=== PATIENT | male | born 1975 | race Hispanic/Latino ===

== ENCOUNTER 2017-08-24 06:25 | Observation (INO) | payer OTHER ==
[2017-08-24] MEDS ORDERED: Oxycodone/Acetaminophen 5/325 mg Tab PO STA (07:26)
[2017-08-24] MEDS ORDERED: Oxycodone/Acetaminophen 5/325 mg Tab ONE (07:34)
--- NOTE | 2017-08-24 07:38 | ED PDOC ---
HPI: Back Time Seen by Provider: 08/24/17 07:09 Chief Complaint (Nursing): Back Pain Chief Complaint (Provider): Back Pain History Per: Patient History/Exam Limitations: no limitations Onset/Duration Of Symptoms: Hrs (1:00am today) Current Symptoms Are (Timing): Still Present Quality Of Discomfort: "Pain" Previous Symptoms: Back Pain Exacerbating Factor(s): Movement Additional Complaint(s): Dmitriy Leiva is a 41 year old male, with no significant past medical history, who was brought to the emergency department via EMS for a sudden left lower back pain onset since 1:00am today. Patient states the pain radiates down the left leg and feels numbness on his toes, the pain is worst with movement. He reports a similar episode recently but not as severe. Patient reports x2 days after coming back from [place] he had a dull pain that lasted a week but he took Meloxicam and Flexeril with relief. Patient took Meloxicam 15mg and Flexeril today at 1am with no relief. He denies any fever, chills, dysuria, retention or blood in urine. No further medical complaints. PMD: None provided. Past Medical History Reviewed: Historical Data, Nursing Documentation, Vital Signs Vital Signs: Last Vital Signs Temp 97.5 F L 08/24/17 06:40 Pulse 98 H 08/24/17 06:40 Resp 20 08/24/17 06:40 BP 140/102 H 08/24/17 06:40 Pulse Ox 97 08/24/17 06:40 - Medical History PMH: No Chronic Diseases - Surgical History Surgical History: No Surg Hx - Family History Family History: States: Unknown Family Hx - Social History Current smoker - smoking cessation education provided: No Alcohol: Social Drugs: Denies - Home Medications Home Medications: Ambulatory Orders Medication Instructions Recorded Methylprednisolone [Medrol Dose 4 mg PO ASDIR #21 mg 08/24/17 Pack (21 tabs)] oxyCODONE/Acetaminophen [Percocet 1 tab PO Q6 PRN #15 tab 08/24/17 5/325 mg Tab] - Allergies Allergies/Adverse Reactions: Allergies Allergy/AdvReac Type Severity Reaction Status Date / Time No Known Allergies Allergy Verified 08/24/17 06:47 Review of Systems ROS Statement: Except As Marked, All Systems Reviewed And Found Negative Constitutional: Negative for: Fever, Chills Genitourinary Male: Negative for: Dysuria, Frequency, Incontinence, Hematuria Musculoskeletal: Positive for: Back Pain (left lower that radiates down the left leg), Leg Pain (left leg) Physical Exam - Reviewed Nursing Documentation Reviewed: Yes Vital Signs Reviewed: Yes - Physical Exam Appears: Positive for: Non-toxic, Uncomfortable Head Exam: Positive for: ATRAUMATIC, NORMAL INSPECTION, NORMOCEPHALIC Skin: Positive for: Normal Color, Warm, Dry Eye Exam: Positive for: Normal appearance, EOMI, PERRL Neck: Positive for: Painless ROM, Supple Cardiovascular/Chest: Positive for: Regular Rate, Rhythm. Negative for: Murmur Respiratory: Positive for: Normal Breath Sounds. Negative for: Respiratory Distress Gastrointestinal/Abdominal: Positive for: Normal Exam, Soft. Negative for: Tenderness Back: Positive for: Vertebral Tenderness (left lower paraspinal ) Extremity: Positive for: Normal ROM (lower extremities). Negative for: Deformity, Swelling Neurologic/Psych: Positive for: Alert, Oriented, Other (Straight leg raise test positive). Negative for: Motor/Sensory Deficits, Aphasia, Facial Droop - Laboratory Results Result Diagrams: 08/24/17 07:45 08/24/17 07:45 - ECG O2 Sat by Pulse Oximetry: 97 (RA) Pulse Ox Interpretation: Normal Medical Decision Making Medical Decision Making: Initial Impression: Back pain and leg pain. Differential includes sciatica, lumbar radiculopathy Initial Plan: --Lumbar Spine w/o contrast [CT] --BMP --CBC w/ differential --Erythrocyte sedimentation rate --Flexeril 10 mg PO --Percocet 5/325mg tab --Valium 5 mg PO --Reevaluation 09:[address] FINDINGS: VERTEBRAE: Unremarkable. No fracture. Normal alignment. DISCS/SPINAL CANAL/NEURAL FORAMINA: L1-2: Unremarkable. L2-3: Disc space height maintained. No disc herniation or significant disc bulge. Central canal and exit foramina adequate. L3-4: Disc space height maintained. No disc herniation or significant disc bulge. Central canal and exit foramina adequate. . L4-5: Mild posterior disc space narrowing. Small central and bilateral disc herniation slightly larger on the left than right with bilateral lateral recess stenosis. Facet joints are slightly overgrown. The at there is mild compressive effects on the ventral surface of the thecal sac more so on the left side. Exit foramina appear adequate. L5-S1: There is disc space narrowing more so along the posterior disc margin with a small Schmorl's node along the superior corner of the S1 segment associated with small osteophytic ridge. . There is also a central and bilateral disc herniation extends inferiorly over short distance within the canal result in compression of the ventral surface of the thecal sac centrally and to the left as well as compression of the left-sided S1 nerve root. There is bilateral lateral recess stenosis left greater than right. Disc also extends slightly into the proximal inferior margins of the left exit foramen. Exit foramina appear marginal to adequate on the left and adequate on the right. PARASPINAL SOFT TISSUES: Unremarkable. OTHER FINDINGS: None. IMPRESSION: Degenerative spondylosis most notably affecting the L5-S1 with posterior disc space narrowing and central and bilateral disc herniation left larger than right that results in bilateral lateral recess stenosis left greater than right as well as compression of the thecal sac and left-sided S1 nerve root. . There is a smaller this disc herniation L4-L5 level as detailed above. 13:40 -Patient reports significant improvement. Pain is controlled. 13:45 -Looked patient in the [place] prescription monitoring program, there is only a record of one Rx of Ativan in the last year. 13:50 -Patient states pain came back, unable to ambulate and is c/o of severe intractable pain even after improvement. He will be admitted for intractable pain to hospital. 14:15 -Spoke with Dr. Romero, who will admit for observation of intractable back pain. Scribe Attestation: Documented by Caleb Hopson, acting as a scribe for Sergio Acosta MD Provider Scribe Attestation: All medical record entries made by the Scribe were at my direction and personally dictated by me. I have reviewed the chart and agree that the record accurately reflects my personal performance of the history, physical exam, medical decision making, and the department course for this patient. I have also personally directed, reviewed, and agree with the discharge instructions and disposition. Disposition - Clinical Impression Clinical Impression: Back pain, Lumbar radiculopathy, Disc herniation - Disposition Referrals: Winston Moulton MD [Staff Provider] - Disposition: Routine/Home Disposition Time: 13:55 Condition: IMPROVED Additional Instructions: Take your medications as instructed. Follow up with your PCP in 2-3 days. Prescriptions: Methylprednisolone [Medrol Dose Pack (21 tabs)] 4 mg PO ASDIR #21 mg oxyCODONE/Acetaminophen [Percocet 5/325 mg Tab] 1 tab PO Q6 PRN #15 tab PRN Reason: Pain, Severe (8-10) Instructions: Herniated Disc (DC), Radiculopathy (DC)
[2017-08-24 08:01] LABS: BASO # 0.1 K/uL (0.0-0.2); BASO % 1.1 % (0.0-2.0); EOS # 0.2 K/uL (0.0-0.7); HEMOGLOBIN 15.6 g/dL (12.0-18.0); MEAN CELL VOLUME 90.6 fl (80.0-94.0); MEAN CORPUSCULAR HEMOGLOBIN 31.4 pg (27.0-31.0); MEAN CORPUSCULAR HGB CONC 34.6 g/dL (33.0-37.0); MEAN PLATELET VOLUME 9.1 fl (7.2-11.7); MONO # 0.4 K/uL (0.0-0.8); MONO % 5.7 % (0.0-10.0); NEUT # 4.9 K/uL (1.8-7.0); NEUT % 64.2 % (50.0-75.0); NRBC % 0.1 % (0.0-0.0); RBC 4.98 Mil/uL (4.40-5.90); RED CELL DISTRIBUTION WIDTH 12.8 % (11.5-14.5); WHITE BLOOD COUNT 7.7 K/uL (4.8-10.8)
[2017-08-24 08:19] LABS: CALCIUM 9.6 mg/dL (8.4-10.2); GFR AFRICAN-AMERICAN > 60; GFR NON-AFRICAN AMERICAN > 60
[2017-08-24 08:24] LABS: BLOOD UREA NITROGEN 24 mg/dl (9-20)
--- NOTE | 2017-08-24 09:17 | CT ---
PROCEDURE: CT Lumbar Spine without contrast HISTORY: Soft back pain no injury COMPARISON: None. TECHNIQUE: Axial computed tomography images were obtained of the lumbar spine without the use of intravenous contrast. Coronal and sagittal reformatted images were created and reviewed. Radiation dose: Total exam DLP = 606.78 mGy-cm. This CT exam was performed using one or more of the following dose reduction techniques: Automated exposure control, adjustment of the mA and/or kV according to patient size, and/or use of iterative reconstruction technique. FINDINGS: VERTEBRAE: Unremarkable. No fracture. Normal alignment. DISCS/SPINAL CANAL/NEURAL FORAMINA: L1-2: Unremarkable. L2-3: Disc space height maintained. No disc herniation or significant disc bulge. Central canal and exit foramina adequate. L3-4: Disc space height maintained. No disc herniation or significant disc bulge. Central canal and exit foramina adequate. . L4-5: Mild posterior disc space narrowing. Small central and bilateral disc herniation slightly larger on the left than right with bilateral lateral recess stenosis. Facet joints are slightly overgrown. The at there is mild compressive effects on the ventral surface of the thecal sac more so on the left side. Exit foramina appear adequate. L5-S1: There is disc space narrowing more so along the posterior disc margin with a small Schmorl's node along the superior corner of the S1 segment associated with small osteophytic ridge. . There is also a central and bilateral disc herniation extends inferiorly over short distance within the canal result in compression of the ventral surface of the thecal sac centrally and to the left as well as compression of the left-sided S1 nerve root. There is bilateral lateral recess stenosis left greater than right. Disc also extends slightly into the proximal inferior margins of the left exit foramen. Exit foramina appear marginal to adequate on the left and adequate on the right. PARASPINAL SOFT TISSUES: Unremarkable. OTHER FINDINGS: None. IMPRESSION: Degenerative spondylosis most notably affecting the L5-S1 with posterior disc space narrowing and central and bilateral disc herniation left larger than right that results in bilateral lateral recess stenosis left greater than right as well as compression of the thecal sac and left-sided S1 nerve root. . There is a smaller this disc herniation L4-L5 level as detailed above.
[2017-08-24] MEDS ORDERED: Morphine 4 MG/ML VIAL IVP ONE ×2 (11:20→15:14)
[2017-08-24] MEDS ORDERED: Morphine 4 MG/ML VIAL ONE (15:16)
[2017-08-24] MEDS ORDERED: Dexamethasone 10 MG in Sodium Chloride 0.9% 50 ML IVP ONE (15:23)
--- NOTE | 2017-08-24 17:56 | MRI ---
PROCEDURE: MR LUMBAR SPINE WITHOUT CONTRAST HISTORY: left back pain left leg pain COMPARISON: None available. TECHNIQUE: Multiecho multiplanar sequences were performed through the lumbar spine without the use of intravenous contrast. FINDINGS: There straightening of lumbar curvature without fracture or spondylolisthesis identified grossly. Vertebral body heights are within normal limits throughout with normal marrow signal appreciated as well. A benign hemangioma is identified at the L2 vertebral body posteriorly. Moderate disc desiccation is identified L4-5 and L5-S1 with the remaining lumbar intervertebral discs adequately hydrated. Conus medullaris appears normal terminating at the superior endplate of L2 with prevertebral paraspinal soft tissues appear diffusely unremarkable. Endplate degenerative changes are developing around the L5-S1 intervertebral disc space as well as the upper plan endplate of L4. T12-L1: No disc herniation, spinal canal stenosis or neural foraminal narrowing. L1-2: No disc herniation, spinal canal stenosis or neural foraminal narrowing. L2-3: No disc herniation, spinal canal stenosis or neural foraminal narrowing. L3-4: No disc herniation, spinal canal stenosis or neural foraminal narrowing. Symmetric facet joint degenerative change encroaches the bilateral neural foramina and lateral recesses without significant generalized stenosis. L4-5: There is a small center disc herniation with inferior extrusion combined with facet arthropathy to cause mild central canal stenosis overall. Lateral recesses are particularly stenosis slightly greater the left and right sides. No significant neural foraminal stenosis bilaterally. L5-S1: There is a large left lateral disc herniation extending from the midline or even right paracentral posterior disc margins laterally into the left neural foramen causing moderate left neural foraminal stenosis, obliterating the left lateral recess and causing a moderate central stenosis greater the left than right hemicanal. Moderate facet joint degenerative changes are also appreciated the right neural foramen is widely patent. OTHER FINDINGS: None. IMPRESSION: 1. A large L5-S1 disc herniation there is predominant left-sided but also the affects the right parasagittal level of the L5-S1 disc causing moderate central canal stenosis greater the left and right sides and moderate left neural foraminal stenosis. 2. A small central disc herniation is identified L4-5 causing mild central canal stenosis overall due to facet arthropathy in concert with this finding. Lateral recesses are particularly stenosis greater at the left and right sides.
[2017-08-24] MEDS: Morphine 4 MG/ML VIAL IVP PRN (23:56)
[2017-08-25 00:56] LABS: URINE BILIRUBIN NEGATIVE (NEGATIVE); URINE BLOOD NEGATIVE (NEGATIVE); URINE CLARITY CLEAR (Clear); URINE COLOR YELLOW (YELLOW); URINE GLUCOSE (UA) NEG (Normal); URINE LEUKOCYTE ESTERASE NEG Leu/uL (Negative); URINE PROTEIN NEGATIVE (NEGATIVE); URINE UROBILINOGEN 0.2-1.0 mg/dL (0.2-1.0)
[2017-08-25 00:57] VITALS: RESP 19
[2017-08-25 08:05] VITALS: BP 122/80; PULSE 85; TEMP 98; O2SAT 98
[2017-08-25 08:11] LABS: HEMOGLOBIN 15.8 g/dL (12.0-18.0); MEAN CELL VOLUME 90.9 fl (80.0-94.0); MEAN CORPUSCULAR HEMOGLOBIN 30.6 pg (27.0-31.0); MEAN CORPUSCULAR HGB CONC 33.7 g/dL (33.0-37.0); RBC 5.16 Mil/uL (4.40-5.90); WHITE BLOOD COUNT 11.1 K/uL (4.8-10.8)
[2017-08-25] MEDS ORDERED: Enoxaparin 40 mg Syringe SC SCH (09:00)
[2017-08-25 09:08] LABS: ALB/GLOB RATIO 1.1 (1.0-2.1); ALBUMIN 4.3 g/dL (3.5-5.0); ALT/SGPT 54 U/L (21-72); AST/SGOT 35 U/L (17-59); BLOOD UREA NITROGEN 19 mg/dl (9-20); CALCIUM 9.8 mg/dL (8.4-10.2); GFR AFRICAN-AMERICAN > 60; GFR NON-AFRICAN AMERICAN > 60
[2017-08-25] MEDS ORDERED: Dexamethasone 6 MG in Sodium Chloride 0.9% 50 ML IVPB SCH (10:15)
[2017-08-25] MEDS: Morphine 4 MG/ML VIAL IVP PRN (11:34)
--- NOTE | 2017-08-26 00:32 | CP.PCM.HP ---
Past Patient History - Past Medical History & Family History Past Medical History?: Yes - Past Social History Smoking Status: Never Smoked - CARDIAC Hx Cardiac Disorders: No - PULMONARY Hx Respiratory Disorders: No - NEUROLOGICAL Hx Neurological Disorder: No - HEENT Hx HEENT Problems: No - RENAL Hx Chronic Kidney Disease: No - ENDOCRINE/METABOLIC Hx Endocrine Disorders: No - HEMATOLOGICAL/ONCOLOGICAL Hx Blood Disorders: No - INTEGUMENTARY Hx Dermatological Problems: No - MUSCULOSKELETAL/RHEUMATOLOGICAL Hx Falls: No - GENITOURINARY/GYNECOLOGICAL Hx Genitourinary Disorders: No - PSYCHIATRIC Hx Substance Use: No - SURGICAL HISTORY Hx Surgeries: No - ANESTHESIA Hx Anesthesia: No Hx Anesthesia Reactions: No Hx Malignant Hyperthermia: No Has any member of the family had a problem w/ anesthesia?: No Meds Home Medications: Home Medication List Medication Instructions Recorded Confirmed Type Cyclobenzaprine [Flexeril] 5 mg PO TID #15 tab 08/25/17 Rx Dexamethasone [Decadron] 4 mg PO Q6 #20 tab 08/25/17 Rx oxyCODONE/Acetaminophen [Percocet 1 ea PO Q6 #20 tab 08/25/17 Rx 5/325 mg Tab] Allergies/Adverse Reactions: Allergies Allergy/AdvReac Type Severity Reaction Status Date / Time No Known Allergies Allergy Verified 08/24/17 06:47 Results - Vital Signs Recent Vital Signs: Last Vital Signs Temp 98.0 F 08/25/17 08:05 Pulse 85 08/25/17 08:05 Resp 19 08/25/17 08:05 BP 122/80 08/25/17 08:05 Pulse Ox 98 08/25/17 08:05 - Labs Result Diagrams: 08/25/17 07:50 08/25/17 07:50 Labs: Laboratory Results - last 24 hr 08/25/17 08/25/17 08/25/17 00:30 07:50 07:50 WBC 11.1 H RBC 5.16 Hgb 15.8 Hct 46.9 MCV 90.9 MCH 30.6 MCHC 33.7 RDW 13.0 Plt Count 261 ESR 11 Sodium 140 Potassium 4.5 Chloride 104 Carbon Dioxide 22 Anion Gap 19 BUN 19 Creatinine 0.9 Est GFR ( Amer) > 60 Est GFR (Non-Af Amer) > 60 Random Glucose 133 H Calcium 9.8 Total Bilirubin 0.5 AST 35 ALT 54 Alkaline Phosphatase 83 C-Reactive Protein < 5.00 Total Protein 8.2 Albumin 4.3 Globulin 3.9 Albumin/Globulin Ratio 1.1 Vitamin B12 480 Urine Color Yellow Urine Clarity Clear Urine pH 6.0 Ur Specific [place] 1.027 Urine Protein Negative Urine Glucose (UA) Neg Urine Ketones Negative Urine Blood Negative Urine Nitrate Negative Urine Bilirubin Negative Urine Urobilinogen 0.2-1.0 Ur Leukocyte Esterase Neg Urine RBC (Auto) 1 Urine Microscopic WBC < 1
--- NOTE | 2017-08-26 00:33 | CP.PCM.DIS ---
Provider - Provider Date of Admission: 08/24/17 14:10 Attending physician: Ghassan Romero MD Time Spent in preparation of Discharge (in minutes): 15 Hospital Course - Lab Results Lab Results: Most Recent Lab Values WBC 11.1 K/uL (4.8-10.8) H 08/25/17 07:50 RBC 5.16 Mil/uL (4.40-5.90) 08/25/17 07:50 Hgb 15.8 g/dL (12.0-18.0) 08/25/17 07:50 Hct 46.9 % (35.0-51.0) 08/25/17 07:50 MCV 90.9 fl (80.0-94.0) 08/25/17 07:50 MCH 30.6 pg (27.0-31.0) 08/25/17 07:50 MCHC 33.7 g/dL (33.0-37.0) 08/25/17 07:50 RDW 13.0 % (11.5-14.5) 08/25/17 07:50 Plt Count 261 K/uL (130-400) 08/25/17 07:50 MPV 9.1 fl (7.2-11.7) 08/24/17 07:45 Neut % (Auto) 64.2 % (50.0-75.0) 08/24/17 07:45 Lymph % (Auto) 26.0 % (20.0-40.0) 08/24/17 07:45 [place] % (Auto) 5.7 % (0.0-10.0) 08/24/17 07:45 Eos % (Auto) 3.0 % (0.0-4.0) 08/24/17 07:45 Baso % (Auto) 1.1 % (0.0-2.0) 08/24/17 07:45 Neut # (Auto) 4.9 K/uL (1.8-7.0) 08/24/17 07:45 Lymph # (Auto) 2.0 K/uL (1.0-4.3) 08/24/17 07:45 [place] # (Auto) 0.4 K/uL (0.0-0.8) 08/24/17 07:45 Eos # (Auto) 0.2 K/uL (0.0-0.7) 08/24/17 07:45 Baso # (Auto) 0.1 K/uL (0.0-0.2) 08/24/17 07:45 ESR 11 mm/hr (0-15) 08/25/17 07:50 Sodium 140 mmol/l (132-148) 08/25/17 07:50 Potassium 4.5 MMOL/L (3.6-5.0) 08/25/17 07:50 Chloride 104 mmol/L (98-107) 08/25/17 07:50 Carbon Dioxide 22 mmol/L (22-30) 08/25/17 07:50 Anion Gap 19 (10-20) 08/25/17 07:50 BUN 19 mg/dl (9-20) 08/25/17 07:50 Creatinine 0.9 mg/dl (0.8-1.5) 08/25/17 07:50 Est GFR ( Amer) > 60 08/25/17 07:50 Est GFR (Non-Af Amer) > 60 08/25/17 07:50 Random Glucose 133 mg/dL (75-110) H 08/25/17 07:50 Calcium 9.8 mg/dL (8.4-10.2) 08/25/17 07:50 Total Bilirubin 0.5 mg/dl (0.2-1.3) 08/25/17 07:50 AST 35 U/L (17-59) 08/25/17 07:50 ALT 54 U/L (21-72) 08/25/17 07:50 Alkaline Phosphatase 83 U/L (38-126) 08/25/17 07:50 C-Reactive Protein < 5.00 mg/L (0.0-9.9) 08/25/17 07:50 Total Protein 8.2 G/DL (6.3-8.2) 08/25/17 07:50 Albumin 4.3 g/dL (3.5-5.0) 08/25/17 07:50 Globulin 3.9 gm/dL (2.2-3.9) 08/25/17 07:50 Albumin/Globulin Ratio 1.1 (1.0-2.1) 08/25/17 07:50 Vitamin B12 480 pg/mL (239-931) 08/25/17 07:50 Urine Color Yellow (YELLOW) 08/25/17 00:30 Urine Clarity Clear (Clear) 08/25/17 00:30 Urine pH 6.0 (5.0-8.0) 08/25/17 00:30 Ur Specific [place] 1.027 (1.003-1.030) 08/25/17 00:30 Urine Protein Negative mg/dL (NEGATIVE) 08/25/17 00:30 Urine Glucose (UA) Neg mg/dL (Normal) 08/25/17 00:30 Urine Ketones Negative mg/dL (NEGATIVE) 08/25/17 00:30 Urine Blood Negative (NEGATIVE) 08/25/17 00:30 Urine Nitrate Negative (NEGATIVE) 08/25/17 00:30 Urine Bilirubin Negative (NEGATIVE) 08/25/17 00:30 Urine Urobilinogen 0.2-1.0 mg/dL (0.2-1.0) 08/25/17 00:30 Ur Leukocyte Esterase Neg [place]/uL (Negative) 08/25/17 00:30 Urine RBC (Auto) 1 /hpf (0-3) 08/25/17 00:30 Urine Microscopic WBC < 1 /hpf (0-5) 08/25/17 00:30 Discharge Exam - Head Exam Head Exam: ATRAUMATIC, NORMAL INSPECTION, NORMOCEPHALIC Discharge Plan - Discharge Medications Prescriptions: Dexamethasone [Decadron] 4 mg PO Q6 #20 tab Cyclobenzaprine [Flexeril] 5 mg PO TID #15 tab oxyCODONE/Acetaminophen [Percocet 5/325 mg Tab] 1 ea PO Q6 #20 tab - Follow Up Plan Condition: IMPROVED Disposition: HOME/ ROUTINE Instructions: Herniated Disc (DC), Radiculopathy (DC) Additional Instructions: Take your medications as instructed. Follow up with your PCP in 2-3 days. Referrals: Winston Moulton MD [Staff Provider] - Thanh Gonzalez MD [Staff Provider] -
== END 2017-08-25 12:56 | disposition home or self-care (01) ==
LOC: H.ER 06:25 → H.ERHOLD 14:10 → H.MEDSURG1 21:37
PROVIDERS: ADMIT Internal Medicine; ATTEND Internal Medicine
DX: M51.16 Intervertebral disc disorders with radiculopathy, lumbar region (principal); M47.9 Spondylosis, unspecified
CPT/HCPCS: 36415; 72131; 72148; 80048; 80053; 81003; 82607; 85025; 85027; 85651; 86140; 96372; 96374; 96375; 96376; 97116; 97161; 99283; G0378; G8978; G8979; G8980; J1100; J1650; J1885; J2270